=== PATIENT | male | born 1985 | race Caucasian/White ===

== ENCOUNTER 2017-08-23 15:51 | Emergency (ER) | payer BC, MEDICAID ==
[2017-08-23] MEDS ORDERED: Oseltamivir 75 MG Cap ONE (17:00)
--- NOTE | 2017-08-23 23:36 | ER ---
HISTORY OF PRESENT ILLNESS: A 31-year-old male here with complaints of feeling sick since yesterday. He has been running a fever, coughing, congestion. He states he has no energy. He is very tired and just been lying around. The patient does have asthma, he takes albuterol for. He does not feel he is having an asthma attack. OBJECTIVE: GENERAL APPEARANCE: The patient is awake and alert. He is preferring to lie on the exam table. VITAL SIGNS: Reviewed. He has a low-grade temp of 99.6, pulse is 100, blood pressure is good, O2 sats are 95%. HEENT: Ears, the patient's right TM is bulging and dusky. Right TM is just slightly bulging. Nares are patent. Oral mucous membranes moist. Posterior pharynx shows drainage. Mild redness. NECK: Supple. LUNGS: Clear. Deep breathing does induce coughing. SKIN: Warm and dry. LAB AND X-RAY STUDIES: Rapid influenza is positive for influenza A. DIAGNOSIS: Influenza A. TREATMENT PLAN: Tamiflu will be started. I will give the patient a script for Phenergan with Codeine to take as needed for coughing. He is to rest, increase his liquid intake using small frequent drinks, use Tylenol or ibuprofen as needed and followup is p.r.n. if his condition should get worse. CRS/MODL /[id number]
== END 2017-08-23 17:15 | disposition home or self-care (01) ==
LOC: LB.ED 15:51
DX: J10.1 Influenza due to other identified influenza virus with other respiratory manifestations (principal)
CPT/HCPCS: 87804; 99283; A9270-GY

== ENCOUNTER 2023-10-10 16:41 | Emergency (ER) | payer BC ==
[2023-10-10] MEDS: Acetaminophen/oxyCODONE 325-5 MG Tab PO PRN (17:07)
[2023-10-10] MEDS ORDERED: Acetaminophen/oxyCODONE 325-5 MG Tab ONE (17:30)
[2023-10-12] MEDS: Acetaminophen/oxyCODONE 325-5 MG Tab ONE (10:51)
== END 2023-10-10 17:45 | disposition home or self-care (01) ==
LOC: LB.ED 16:41
DX: S69.91XA Unspecified injury of right wrist, hand and finger(s), initial encounter (principal); I10 Essential (primary) hypertension; J45.909 Unspecified asthma, uncomplicated; F17.210 Nicotine dependence, cigarettes, uncomplicated; W23.0XXA Caught, crushed, jammed, or pinched between moving objects, initial encounter
CPT/HCPCS: 73140-F5; 99283; A9270-GY